=== PATIENT | male | born 1990 | race Two or more races ===

== ENCOUNTER 2024-01-09 23:34 | Emergency (ER) | payer OTHER ==
[~2024-01-09] VITALS: Ht 188 cm; Wt 86.2 kg
[2024-01-10] MEDS ORDERED: CEFTRIAXONE SODIUM 1,000 MG VIAL IM STA (00:56)
[2024-01-10] MEDS ORDERED: KETOROLAC TROMETHAMINE 10 MG TABLET PO STA (00:56)
[2024-01-10] MEDS ORDERED: KETOROLAC TROMETHAMINE 10 MG TABLET PO ONE (01:02)
[2024-01-10] MEDS ORDERED: CEFTRIAXONE SODIUM 1,000 MG VIAL ONE ×2 (01:02→01:35)
[2024-01-10 02:00] LABS: HEMATOCRIT 33.7 % (39.0-48.0); HEMOGLOBIN 11.2 g/dL (13-16.00); MEAN CELL VOLUME 91.1 fL (80.0-100.00); MEAN CORPUSCULAR HEMOGLOBIN 30.2 pg (27.00-32.0); MEAN CORPUSCULAR HGB CONC 33.1 g/dl (32.0-36.0); PLATELET COUNT 334 K/uL (150-450); RED CELL DISTRIBUTION WIDTH 13.3 % (11.5-14.5)
[2024-01-10 02:15] LABS: CALCIUM 9.5 mg/dL (8.5-10.1); CREATININE SERUM 0.9 mg/dL (0.70-1.30); GFR 96.59; POTASSIUM 3.64 mEq/L (3.5-5.1)
[2024-01-10] MEDS ORDERED: SILVADENE20 GM TOP (03:23)
[2024-01-10] MEDS ORDERED: KETO10TA2 PO (03:23)
== END 2024-01-10 03:27 | disposition home or self-care (01) ==
LOC: ER 23:35
PROVIDERS: General Practice
DX: S80.811A Abrasion, right lower leg, initial encounter (principal); L08.9 Local infection of the skin and subcutaneous tissue, unspecified; F19.10 Other psychoactive substance abuse, uncomplicated